=== PATIENT | male | born 1975 | race Caucasian/White ===

== ENCOUNTER 2022-05-11 03:16 | Outpatient (CLI) | payer OTHER, SELFPAY ==
[2022-05-11 08:44] LABS: ALT 29 U/L (16-63); AST 15 U/L (15-37); Albumin 3.6 g/dL (3.4-5.0); Alkaline Phosphatase 77 U/L (46-116); BUN 14 mg/dL (7-18); Bilirubin, Total 0.5 mg/dL (0.2-1.0); CREATININE 0.9 mg/dL (0.70-1.30); Calcium 8.5 mg/dL (8.5-10.1); Calculated LDL 173 mg/dL (<100); Chloride 105 mmol/L (98-107); Cholesterol 236 mg/dL (<200); Glucose 101 mg/dL (74-106); HDL Cholesterol 45 mg/dL (40-60); Potassium 4.1 mmol/L (3.5-5.1); Sodium 139 mmol/L (136-145); Triglyceride 93 mg/dL (<150)
[2022-05-12 10:21] LABS: Hepatitis C Ab w Rflx HCV PCR Negative (Negative)
== END 2022-05-11 03:17 | disposition home or self-care (01) ==
LOC: LBO 03:16
PROVIDERS: PCP Family Medicine; Visit Provider Family Medicine
DX: E78.5 Hyperlipidemia, unspecified (principal); Z11.3 Encounter for screening for infections with a predominantly sexual mode of transmission; Z11.59 Encounter for screening for other viral diseases
CPT/HCPCS: 36415; 80053; 80061; 86803

== ENCOUNTER 2024-08-30 07:12 | Day surgery (SDC) | payer OTHER, SELFPAY ==
--- NOTE | 2024-08-29 20:24 | W.COLOREPORT ---
Date of service: 08/30/24 Time of Service: 10:30 Colonoscopy Report Date of procedure: 08/30/24 Pre-op diagnosis general: Fam HX CRC Post-op diagnosis procedure note: other (divertic) Surgeon: Naya Estevez Anesthesia Type: General:No Airway Estimated blood loss (mL): 0 Pathology: none sent Complications: None Disposition: same day Prep: Miralax/Dulcolax Retraction Time: 9 Procedure Description: After informed consent was obtained, explaining risks of the procedure, including but not limits to: bleeding, infections, complications of anesthesia, perforations (which may require antibiotics and /or surgery and stay in the hospital), and abdominal pain/cramping. The patient was taken to the procedure room and placed in a left decubitous position. Monitors were applied and a time out was done. The patients name, date of , procedure, allergies to medications and metal in their body was reviewed. The patient was then sedated. Once sedated and comfortable a rectal exam was done. External exam was normal. Internal exam revealed a normal sphincter tone and no palpable masses. The prostate no masses palpated today. The previously lubricated Olympus scope was then introduced (see RN notes for scope number) and retrofelexed. No internal hemorrhoids were identified, there was a hemorrhoidal tag present.. The scope was then advanced to the cecum without difficulty. The TI and appendiceal orifice were identified. The scope was then slowly retracted over 9 minutes back into the rectum. Polyps: none Diverticula: pt had very small amount of small mouthed diverticula in the sigmoid colon. There were no signs of active bleeding or infection. The mucosa is pink and healthy w/ a normal vascular pattern. The scope was removed, and the patient was woken up and taken back to Same day surgery in stable condition. The patient tolerated the procedure well and there were no immediate complications. Follow up: The patient should follow up in 5 years, unless they develop changes in bowel habits or other new gastrointestinal complaints. [place] Bowel Prep [place] Bowel Prep Right Colon: 3 Left Colon: 3 Transverse Colon: 3 Total Score: 9
--- NOTE | 2024-08-29 20:28 | PDOC.DSDIS_ITS ---
Date of service: 08/30/24 Time of Service: 09:55 Discharge Plan Disposition Patient Disposition: Home Discharge Details Reason For Visit: Colon cancer screening Attending Provider: Naya Estevez Primary Care Provider: Efraín Tai Home Meds and New Rx's Prescriptions: Continued atorvastatin 20 mg tablet 20 mg PO QHS Qty: 90 3RF Discontinued bisacodyl [Dulcolax (bisacodyl)] 5 mg tablet,delayed release (DR/EC) 5 mg PO ONCE Qty: 4 0RF Rx Instructions: Take per colonoscopy instructions provided by ordering providers office polyethylene glycol 3350 17 gram/dose powder 17 g PO ONCE Qty: 238 0RF Rx Instructions: Take per colonoscopy instructions provided by ordering providers office No Action bupropion HCl 150 mg tablet extended release 24 hr 150 mg PO QAM Qty: 90 3RF Discharge Instructions Additional Instructions: [facility] Colonoscopy Post- Op Instructions Instructions for Everyone who is given Anesthesia: For your safety, please do the following for the next twenty-four (24) hours: *Do Not operate a motor vehicle (car, truck, motorcycle, etc.) *Do Not drink alcoholic beverages or use any recreational drugs for the first 24 hours or while taking pain medications. The medications in your body may have a reaction that can be dangerous. *Do Not make any important decisions or sign any important papers. Findings: Minor diverticular disease. Make sure you are moving your bowels on a regular basis and not straining. If you find you are having problems with constipation/straining to move your bowels on a regular basis, then we recommend you start a fiber product such as Metamucil. There is also a very small polyp that we took out. Follow up: My office will send you a letter in 2 to 3 weeks time with the results of the pathology and when we want to repeat the colonoscopy, Most likely 7 to 10 years time. 1. No lifting over 20 pounds or strenuous activity for the first 24 hours after your procedure. After 24 hours there are no restrictions on your activity but you may feel fatigued for a few days. 2. After you arrive home you may have a light meal and return to your normal diet as you can tolerate it without feeling sick to your stomach. 3. You may have a bloated, gaseous feeling in your belly (abdomen) after a colonoscopy. Passing gas and belching will help. Walking or lying down on your left side with your knees flexed may relieve the discomfort. Call the office at [phone] (Office) or [phone] (Hospital) right away if you notice any of the following: a.Vomiting of blood or ?coffee ground stools?. b.Rectal bleeding 1Tbsp, blood clots or continuous bleeding. c.Severe belly (abdominal) pain. d.A hard distended belly (abdomen) and an inability to pass gas. 4. Please don?t expect to have a normal BM (bowel movement) for 2-3 days after your procedure. 5. If there are questions regarding the findings of your procedure, please contact your doctor 6. If you are unable to contact your doctor with a problem, contact the hospital at [phone]. 7. Continue all your regular medications unless directed otherwise. I understand the above instructions and have no questions. Signature of Patient or Adult Escort Name of Responsible Adult Escort Signature of Nurse Date/Time Activity:: See above Diet:: See above Discharge Orders Discharge Orders: Discharge Order (Routine); Ordered 08/30/24 Ordered By: Naya Estevez DS: Diagnosis Discharge Diagnosis (1) Family history of colon cancer: Status: Chronic (2) Diverticula of colon: Status: Acute
[2024-08-30 07:14] VITALS: BP 148/88; PULSE 92; RESP 18; TEMP 36; O2SAT 96
[2024-08-30] MEDS: Normal Saline Flush 10 ML SYR IV (07:37)
--- NOTE | 2024-08-30 09:11 | W.ANESPRE ---
General Info Date of Service Date Performed: 08/30/24 Height: 5 ft 11.5 in Weight: 115.666 kg Body Mass Index (BMI): 35.0 Surgical Procedure: Operation Date: 08/30/24 08:50 Proposed Procedure Side Surgeon martha Estevez, Meds Allergies and Home Medications Allergies Allergy/AdvReac Type Severity Reaction Status Date / Time No Known Allergies Allergy Verified 08/30/24 07:29 Home Medication ?Medication ?Instructions ?Recorded atorvastatin 20 mg tablet 20 mg PO QHS #90 tabs 03/22/24 bupropion HCl 150 mg 24 hr tablet, 150 mg PO QAM #90 tabs 04/23/24 extended release bisacodyl 5 mg tablet,delayed 5 mg PO ONCE #4 tabs 08/13/24 release (Dulcolax (bisacodyl)) polyethylene glycol 3350 17 17 g PO ONCE #238 grams 08/13/24 gram/dose oral powder Current Visit Medications: Current Medications Generic Name Dose Route Start Last Admin Trade Name Freq PRN Reason Stop Dose Admin Hyoscyamine Sulfate 0.125 mg 08/30/24 05:56 Hyoscyamine 0.125 Mg Sl/Oral/Chew SL 09/29/24 05:55 DIRECTED PRN IV Miscellaneous Supplies 1 each 08/30/24 06:00 Iv Access IV 08/30/24 23:59 DIRECTED HARESH Ondansetron HCl 4 mg 08/30/24 05:56 Ondansetron 4 Mg/2 Ml Vial IVP 09/29/24 05:55 Q4H PRN PRN Nausea / Vomiting Sodium Chloride 0 ml 08/30/24 06:00 08/30/24 07:37 Normal Saline Flush 10 Ml Syr IV 08/30/24 23:59 10 ml PRN PRN Administration Sodium Chloride 0 ml 08/30/24 06:00 Normal Saline 10 Ml Vial IJ 08/30/24 23:59 DIRECTED PRN Sterile Water 0 ml 08/30/24 06:00 Water,Injection,Sterile 10 Ml Vial IJ 08/30/24 23:59 DIRECTED PRN PFSH Active Problems Active Problems: Problem Status Onset Code Family history of colon cancer Chronic Z80.0 Hyperlipidemia Chronic E78.5 Depression Chronic F32.9 Surgical History Surgical History History of ankle surgery 21 017 Bilateral Ankle Surgery Tobacco Smoking/Tobacco Use Status: Never Passive smoking exposure: No Second hand exposure: No Alcohol Alcohol Intake: current Alcohol intake frequency: a few times a week Substance Use Substance use: Never Substance use type: does not use Vital Signs and Lab Results Vital Signs Most Recent Vital Signs in EMR: Most Recent Vital Signs Temp Pulse Resp BP Pulse Ox 36 C L 92 H 18 148/88 H 96 08/30/24 07:14 08/30/24 07:14 08/30/24 07:14 08/30/24 07:14 08/30/24 07:14 Lab Results Blood Type / Crossmatch: No Data to Display Complete Blood Count: No Data to Display Complete Metabolic Panel: No Data to Display Liver Function Panel: No Data to Display Coagulation Panel: No Data to Display Cardiac Panel: No Data to Display Arterial Blood Gas: No Data to Display Venous Blood Gas: No Data to Display Pancreas Panel: No Data to Display Thyroid Panel: No Data to Display Infectious Disease: No Data to Display Blood Cultures: No Data to Display Toxicology Panel: No Data to Display Anesthesia Assessment and Plan Anesthesia History Personal History: No History of Anesthesia Complications Family History: No Family History of Anesthesia Complications Exercise Tolerance Exercise Tolerance: Metabolic Equivalents>4 Pertinent Negatives Pertinent Negatives: No Symptoms of GERD Cardiac & Pulmonary Exam Cardiac Exam: Normal S1/S2 Heart Sounds Pulmonary Exam: Clear Bilateral Breath Sounds Implantable Cardiac Device Does patient have a Pacemaker or an ICD?: No Airway Exam Known Difficult Airway: No Mallampati Class: 2 Mouth Opening: Normal (> 3cm) Thyromental Distance: Greater than 3 cm Neck Range of Motion: Full ROM Neck Circumference: Normal Teeth Condition: Normal Dentition ASA Classification ASA Score: ASA 2 Emergency Case?: No NPO Status NPO Status: NPO Clears >2 hours, Solids >8 hours Anesthesia Plan Resuscitation Status: Full Code Anesthesia Technique: General Anesthesia Airway Planned: Natural Airway Monitors Used: Standard Monitors
[2024-08-30 09:12] VITALS: BMI 35.0
--- NOTE | 2024-08-30 09:47 | BOWEL_PTH ---
PATIENT: Eben Lima LOC: [facility] U#:[id number] AGE/SX: 49/M ROOM: RE08/30/[address]: Naya Estevez : 1975 BED: DIS: 08/30/2024 SPEC #: [id number] RECD: 08/30/24 12:55 STATUS: RAULITO REQ #: [id number] RODY: 08/30/24 09:[address]: Naya Estevez DEPT: Surgical Specimen RECD BY: Kristie Chris ENTERED: 08/30/24 12:55 SP TYPE: Bowel OTHR DR: Efraín Tai DO Tissues: 1 - BIOPSY BOWEL Procedures: GROSS AND MICRO LEVEL 4 Comments: [id number]
[2024-08-30 09:55] VITALS: BP 112/76; PULSE 87; RESP 14; TEMP 36.8; O2SAT 94
--- NOTE | 2024-08-30 10:08 | W.ANESPOSTOP ---
Postoperative Evaluation Date, Time and Location Date Performed: 08/30/24 Time Performed: 10:08 Patient Location: Day Surgery Unit Vital Signs Most Recent Imported Vital Signs: Most Recent Vital Signs Temp Pulse Resp BP Pulse Ox 36 C L 92 H 18 148/88 H 96 08/30/24 07:14 08/30/24 07:14 08/30/24 07:14 08/30/24 07:14 08/30/24 07:14 Assessment Mental Status: Awake (Alert & Oriented to Patient Baseline) Airway and Respiratory Function: Patent airway with normal (patient baseline) respiratory exam Cardiovascular Function: Hemodynamically Stable Hydration Status: Adequately Hydrated Nausea & Vomiting: No Nausea or Vomiting Pain: Pt. Denies Any Pain Peripheral Nerve Block: Patient did not receive a nerve block
[2024-08-30 10:30] VITALS: BP 146/90; PULSE 86; RESP 16; TEMP 36.8; O2SAT 98
== END 2024-08-30 10:55 | disposition home or self-care (01) ==
PROVIDERS: PCP Family Medicine; Visit Provider Surgery
PROC: 0DJD8ZZ Inspection of Lower Intestinal Tract, Via Natural or Artificial Opening Endoscopic (ICD-10-PCS; CPT 45378; principal; 2024-08-30 08:45)
DX: Z80.0 Family history of malignant neoplasm of digestive organs (principal); K57.30 Diverticulosis of large intestine without perforation or abscess without bleeding; Z12.11 Encounter for screening for malignant neoplasm of colon; K63.89 Other specified diseases of intestine
CPT/HCPCS: 45378; 88305; J2003; J2704